=== PATIENT | female | born 1975 | race Caucasian/White ===

== ENCOUNTER 2023-08-14 13:51 | Outpatient (CLI) | payer MEDICAID, SELFPAY ==
--- NOTE | 2023-08-14 13:55 | XR_ITS ---
WS: [id number] Examination: XR lumbar spine 2-3V* [id number] Reason for Exam: M54.16 - Radiculopathy, lumbar region Date: August 14, 2023 Comparison: None. Findings: The bone density and the pedicles are intact. There is no lumbar wedging or compression There is grade 2-3 anterolisthesis at L5-S1. Pars defects are suspected. There is loss of the disc sp lela height at this level. Lower thoracic hypertrophic changes are present. Note is made of a previous right hip prosthesis. Surgical clips are noted in the right upper quadrant . 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
[2023-08-14 14:24] LABS: Basophils # 0.1 10^3/uL (0.0-0.1); Basophils % 0.9 %; Eosinophils # 0.6 10^3/uL (0.0-0.8); Eosinophils % 7.7 %; Hematocrit 42.1 % (36-47); Lymphocytes # 2.5 10^3/uL (0.8-4.8); Lymphocytes % 31.7 %; Mean Corpuscular HGB Conc 31.8 g/dL (30-55); Mean Corpuscular Hemoglobin 29.5 pg (27-33); Mean Corpuscular Volume 92.7 fl (85-98); Mean Platelet Volume 8.6 fL (7.4-10.4); Monocytes # 0.4 10^3/uL (0.2-0.9); Monocytes % 4.6 %; Neutrophils # 4.27 10^3/uL (1.8-7.7); Neutrophils % 54.6 %; Nucleated Red Blood Cells % 0 %; Platelet Count 298 10^3/cmm (157-399); Red Blood Count 4.54 10^6/uL (3.85-5.65); Red Cell Distribution Width 12.9 % (12.1-15.1); White Blood Count 7.82 10^3/uL (3.29-11.43)
[2023-08-14 14:49] LABS: Calcium 9.5 mg/dL (8.5-10.5)
[2023-08-14 14:52] LABS: Alanine Aminotransferase 23 U/L (0-33); Alkaline Phosphatase 82 U/L (35-105); Anion Gap 14.8 (5-19); Aspartate Amino Transferase 17 U/L (0-32); Blood Urea Nitrogen 12 mg/dL (6-20); Calcium 9.3 mg/dL (8.5-10.5); Carbon Dioxide 24 mmol/L (22-29); Chloride 107 mmol/L (98-107); Chol HDL Ratio 3.88 mg/dL (0.0-4.40); Cholesterol 221 mg/dL (0-200); Free T4 Free Thyroxine 0.97 ng/dL (0.82-1.77); Globulin 3.2 g/dL (1.3-4.6); Glomerular Filtration Rate 107.6 mL/min (90-130); Glucose 146 mg/dL (65-115); HDL Cholesterol 57 mg/dL (60-100); LDL Cholesterol Calculated 107 mg/dL (50-129); LDL HDL Ratio 1.88 RATIO (0.00-3.22); Osmolality Calculated 296 mOsm/kg (285-295); Potassium 3.8 mmol/L (3.5-5.1); Sodium 142 mmol/L (136-145); Total Bilirubin 0.3 mg/dL (0.15-1.2); Total Protein 7.2 g/dL (6.6-8.7); Triglycerides 287 mg/dL (0-150)
[2023-08-14 14:56] LABS: Hepatitis C Virus Antibody Non-Reactive (Nonreactive)
[2023-08-14 14:58] LABS: HIV 1 & 2 Antibody Non-Reactive (Non-Reactiv); HIV 1 & 2 Antigen Non-Reactive (Non-Reactiv)
[2023-08-14 15:17] LABS: Follicle Stimulating Hormone 30.6 mIU/mL
[2023-08-14 15:23] LABS: Parathyroid Hormone 42.5 pg/mL (15-65)
== END 2023-08-14 13:52 | disposition home or self-care (01) ==
LOC: LAB 13:52
PROVIDERS: PCP Family Medicine; Visit Provider Family Medicine
DX: Z51.81 Encounter for therapeutic drug level monitoring (principal); Z79.899 Other long term (current) drug therapy; Z12.31 Encounter for screening mammogram for malignant neoplasm of breast; N95.9 Unspecified menopausal and perimenopausal disorder; M54.16 Radiculopathy, lumbar region; Z98.1 Arthrodesis status; F31.9 Bipolar disorder, unspecified; Z11.4 Encounter for screening for human immunodeficiency virus [HIV]; Z11.59 Encounter for screening for other viral diseases; M43.06 Spondylolysis, lumbar region
CPT/HCPCS: 36415; 72100; 80053; 80061; 82310; 83001; 83970; 84439; 84443; 85025; 86803; 87806

== ENCOUNTER → 2023-08-15 08:26 | Outpatient (BNVA) | payer OTHER, SELFPAY | PROVIDERS: PCP Family Medicine; Visit Provider Family Medicine | DX: Z51.81 Encounter for therapeutic drug level monitoring (principal); Z79.899 Other long term (current) drug therapy; N95.9 Unspecified menopausal and perimenopausal disorder; M54.16 Radiculopathy, lumbar region; Z98.1 Arthrodesis status; F31.9 Bipolar disorder, unspecified; Z76.89 Persons encountering health services in other specified circumstances; Z12.31 Encounter for screening mammogram for malignant neoplasm of breast | CPT/HCPCS: 81003 ==

== ENCOUNTER 2023-08-29 14:28 | Outpatient (CLI) | payer MEDICARE, MEDICAID, SELFPAY ==
--- NOTE | 2023-08-29 14:30 | MM_ITS ---
WS: [id number] BILATERAL 3D TOMOSYNTHESIS DIGITAL SCREENING MAMMOGRAPHY WITH CAD CLINICAL INFORMATION: Z12.31 - Encounter for screening mammogram for malignant ... HISTORY: Screening mammogram. No current complaints. COMPARISON: Baseline TECHNIQUE: Bilateral CC and MLO views. FINDINGS: Scattered fibroglandular densities bilaterally. No suspicious focal mass, asymmetry, calcifications, or architectural distortion. No evidence of malignancy. Incidental punctate and lucent centered calci fications. IMPRESSION: MM/[place] [id number] BI-RADS: 2-Benign FOLLOW UP: 1 Year Follow-up Recommend return to annual screening mammography.
== END 2023-08-29 14:29 | disposition home or self-care (01) ==
LOC: MOBLMAM 14:41
PROVIDERS: PCP Family Medicine; Visit Provider Family Medicine
DX: Z12.31 Encounter for screening mammogram for malignant neoplasm of breast (principal)
CPT/HCPCS: 77063; 77067

== ENCOUNTER 2023-12-05 15:58 | Outpatient (RCR) | payer MEDICARE, MEDICAID, SELFPAY | END 2023-12-12 23:59 | disposition home or self-care (01) | LOC: SOT 15:58 | PROVIDERS: Visit Provider Family Medicine | DX: M54.16 Radiculopathy, lumbar region (principal); Z98.1 Arthrodesis status | CPT/HCPCS: 97167 ==

== ENCOUNTER → 2024-06-26 14:24 | Outpatient (BNVA) | payer MEDICARE, MEDICAID, SELFPAY | PROVIDERS: Visit Provider Nurse Practitioner Family | DX: D23.72 Other benign neoplasm of skin of left lower limb, including hip (principal); L81.4 Other melanin hyperpigmentation; L57.8 Other skin changes due to chronic exposure to nonionizing radiation | CPT/HCPCS: 99203 ==

== ENCOUNTER → 2024-07-08 14:14 | Outpatient (BNVA) | payer MEDICARE, MEDICAID, SELFPAY | PROVIDERS: Visit Provider Surgery | DX: L98.9 Disorder of the skin and subcutaneous tissue, unspecified (principal) | CPT/HCPCS: 99204 ==

== ENCOUNTER 2024-08-04 05:28 | Day surgery (SDC) | payer MEDICARE, MEDICAID, SELFPAY ==
[2024-08-04] VITALS (10 sets, daily range): BP systolic 138–177; BP diastolic 84–115; PULSE 67–76; RESP 16–18; TEMP 36.2–36.5; O2SAT 96–100; BMI 46.0
--- NOTE | 2024-08-04 06:10 | W.PM.OPSUD ---
Surgery/Procedure H&P Update DATE OF PROCEDURE: August 04, 2024 DATE H&P PERFORMED: 07/08/24 H&P UPDATE INFORMATION: I have reviewed H&P completed within last 30 days, I have examined patient prior to procedure, No changes to prior documentation and H&P is in [facility] [place] EMR on date indicated PLANNED PROCEDURE: Operation Date: 08/04/24 07:00 Proposed Procedures p [id number] x2 [id number] excision of subcutaneous mass right upper extremity x2, L98.9 Skin Lesion(Right) - Doyle Bartholomew MD s Excision of Left Abdominal Mass(Left) - Doyle Bartholomew MD
--- NOTE | 2024-08-04 06:11 | ANES.PREANE2 ---
Pre-Anesthetic Assessment Height/Weight: Height 5 ft 4 in Weight 268 lb Temp Pulse Resp BP Pulse Ox O2 Del Method 97.5 F L 72 18 143/84 97 Room Air 08/04/24 06:03 08/04/24 06:03 08/04/24 06:03 08/04/24 06:03 08/04/24 06:03 08/04/24 06:03 Preop Diagnosis: Abdominal mass Operation Date: 08/04/24 07:00 Proposed Procedures p 71991 x2 95859 excision of subcutaneous mass right upper extremity x2, L98.9 Skin Lesion(Right) - Doyle Bartholomew MD s Excision of Left Abdominal Mass(Left) - Doyle Bartholomew MD Was Beta Pavan taken within 24 hours: N/A Was Clonidine taken within 24 hours: N/A Last intake: Intake Last Liquid Date 08/03/24 Last Liquid Time 20:15 Last Solid Date 08/03/24 Last Solid Time 17:00 Social No alcohol and No tobacco Exam alert, oriented x 3, clear to auscultation bilaterally and regular rate & rhythm Airway Submandibular: within normal limits Cervical ROM: within normal limits Mallampati: Class III Dentition: full Comments: Comments: Tongue ring in place, patient states this cannot be removed Anesthetic Plan ASA status: 3 Anesthesia: General Other: No prior issues with anesthesia besides stating she does not get enough sometimes due to being a redhead NPO since yesterday evening History of bipolar 1 disorder on lumateperone. Will avoid CY inhibitors if possible BMI 46 When asked if she gets short of breath going up a flight of stairs she said of course because of her large breast and body habitus Prior lumbar surgery, disabled due to chronic radiculopathy Plan for general anesthesia Medications/Allergies Home Medications ?Medication ?Instructions ?Recorded ?Confirmed ?Last Taken ?Type Power Mobility Chair #1 ea 11/07/23 07/08/24 Unknown Rx lumateperone 42 mg capsule 42 mg PO QDAY 07/08/24 08/04/24 08/03/24 History (Caply[place]) Allergies Allergy/AdvReac Type Severity Reaction Status Date / Time morphine Allergy ADR-Vomitin Verified 08/04/24 06:01 g [facility] Anesthesia Family History Father Diabetes Heart attack . Social History Smoking and tobacco/nicotine status: former use of tobacco/nicotine Alcohol intake: current Alcohol intake frequency: holidays/special occasions only Substance/Drug Use: never Adopted: No Caregiver/support person: Yes Lives independently: Yes Household members: spouse Marital status: Current occupational exposures/hazards: No Do you think of yourself as: Straight/Heterosexual Current gender identity: Female Female Reproductive History Spontaneous abortions: No Data Anesthesia Cardiac Studies: No Data to Display
[2024-08-04] MEDS: sodium chloride 0.9% 1,000 ML 30 ML IV (06:14)
[2024-08-04] MEDS: ceFAZolin 3,000 MG in sodium chloride 0.9% (plus) 100 ML 200 MG IV (07:02)
[2024-08-04] MEDS: BUPivacaine 0.25% INJ 10 mL INJECTION (08:00)
[2024-08-04] MEDS: lidocaine-epi 1% 20 mL INJ INJECTION (08:00)
--- NOTE | 2024-08-04 08:23 | PM.OP ---
Operative Report Date of procedure: August 04, 2024 Pre-op diagnosis: Multiple subcutaneous lesions of the right upper extremity and left abdomen Post-op diagnosis: Same Post-op findings: There were 3 subcutaneous lesions in the right forearm. The most distal measuring about 2 x 1 cm, the mid lesion measure about 1.5 x 1 cm and the most proximal 1 measure 1 x 1 cm. All the lesions were subcutaneous. On the left abdomen there was a subcutaneous lesion measuring 4 x 4 cm Procedure done: Excision of multiple subcutaneous lesions of the right forearm and left abdominal wall. Specimens removed/disposition: Distal right forearm subcutaneous mass, mid right forearm subcutaneous mass, proximal right forearm subcutaneous mass, left abdominal wall mass Surgeon: Doyle Bartholomew MD Tools Developer: [facility] OR Staff Estimated blood loss: 5 Brief History: 48-year-old female with multiple subcutaneous masses who presented for excision. Procedure: Patient was brought into the OR, she was placed in a supine position. General anesthesia was given. The right forearm and left abdominal wall were prepped and draped in the usual sterile fashion. A timeout was conducted. Identified the 3 areas that had been previously marked in the right forearm and infiltrated local anesthesia. I started by at the most distal right forearm lesion, I made a 2 cm incision, the incision was deepened to subcutaneous tissue and the lesion was identified. I circumferentially dissected the lesion with a hemostat and delivered through the wound. The base was transected with electrocautery. The specimen was passed for pathology. The wound was irrigated and hemostasis was achieved. The wound was closed in layers using #3-0 Vicryl for the subcutaneous tissue #4 Monocryl for the skin. I then placed my attention to the mid right forearm lesion I made a 1.5 cm incision, the incision was deepened to subcutaneous tissue and the lesion was identified. I circumferentially dissected the lesion with a hemostat and delivered through the wound. The base was transected with electrocautery. The specimen was passed for pathology. The wound was irrigated and hemostasis was achieved. The wound was closed in layers using #3-0 Vicryl for the subcutaneous tissue #4 Monocryl for the skin. I then placed my attention on the most proximal lesion of the right forearm I made a 1 cm incision, the incision was deepened to subcutaneous tissue and the lesion was identified. I circumferentially dissected the lesion with a hemostat and delivered through the wound. The base was transected with electrocautery. The specimen was passed for pathology. The wound was irrigated and hemostasis was achieved. The wound was closed in layers using #3-0 Vicryl for the subcutaneous tissue #4 Monocryl for the skin. I then placed my attention to the left abdominal wall mass. I made a 4 cm incision, the incision was deepened to subcutaneous tissue and the lesion was identified. I circumferentially dissected the lesion with blunt dissection and delivered through the wound. The base was transected with electrocautery. The specimen was passed for pathology. The wound was irrigated and hemostasis was achieved. The wound was closed in layers using #3-0 Vicryl for the subcutaneous tissue #4 Monocryl for the skin. At the end of the procedure all counts were correct, the patient tolerated well the procedure was transferred to the PACU in stable condition
[2024-08-04] MEDS: ondansetron 2 mg/ML SDV 2 mL 4 MG IVP (09:00)
[2024-08-04] MEDS: scopolamine 1 mg PATCH 1 PATCH TRANSDERMA (09:05)
--- NOTE | 2024-08-04 09:29 | ANE.PACU2 ---
Inpatient post-anesthesia follow up: Airway intact: Yes Vital signs: Temperature 97.7 F Pulse Rate 67 Respiratory Rate 17 Blood Pressure 155/94 Pulse Oximetry 98 Oxygen Delivery Me thod Room Air Oxygen Flow Rate 10 Fraction of Inspir ed Oxygen Hydration adequate: Yes Nausea and vomiting: No Pain level: 1 Mental status: Baseline
[2024-08-05 11:53] LABS: OR HCG Qualitative Urine Negative (Negative)
== END 2024-08-04 09:40 | disposition home or self-care (01) ==
PROVIDERS: Student in an Organized Health Care Education/Training Program; Visit Provider Surgery
PROC: (CPT 22903; principal; 2024-08-04 07:00)
PROC: (CPT 22903; 2024-08-04 07:00)
DX: D17.21 Benign lipomatous neoplasm of skin and subcutaneous tissue of right arm (principal); E66.9 Obesity, unspecified; Z68.42 Body mass index [BMI] 45.0-49.9, adult; D17.1 Benign lipomatous neoplasm of skin and subcutaneous tissue of trunk; F31.9 Bipolar disorder, unspecified; Z79.899 Other long term (current) drug therapy; Z87.891 Personal history of nicotine dependence
CPT/HCPCS: 22903; 25075 ×3; 81025; 88307; J0690; J1100; J2405; J2704; J3010; J3490; J7030; J9999